=== PATIENT | female | born 1940 | race Caucasian/White ===

== ENCOUNTER 2024-03-06 12:56 | Outpatient (CLI) | payer MEDICARE, OTHER ==
[~2024-03-06 12:56] MED LIST: B-121000 MCG PO; CARDIZEM CD 24240 MG PO; CATAPRES 0.1MG0.1 MG PO; COZAAR100 MG PO; CRESTOR 10MG10 MG PO; EPIPEN1 MG/ML MR; FERRO-TIME325 MG PO; FLONASE NASAL S16 GM NS; HYZAAR 25 MG-101 TAB PO; KLOR-CON20 MEQ PO; MAG-OX 400400 MG/TAB PO; POLICOSANOL10 MG PO; PROTONIX 40MG T40 MG PO; SINGULAIR 110 MG/TAB PO; SYNTHROID0.1 MG/TAB PO; TRIAMC 0.1 454 TOP; VITAMIND3 5000 PO; ZYRTEC 10MG10 MG PO; [UNRECOGNIZED DRUG - CODE] PO; [UNRECOGNIZED DRUG - CODE] PO
[2024-03-06 13:28] VITALS: BP 143/93; PULSE 76; TEMP 97.9
[2024-03-06] MEDS ORDERED: Denosumab 60 MG/ML SYRINGE SQ ONE (13:30)
--- NOTE | 2024-03-06 13:44 | NUR ---
PT TOLERATED PROLIA INJECTION WELL. REMAINED FREE FROM SIGNS OF ADVERSE OR ALLERGIC REACTION. PT ASSISTED TO MAIN LOBBY VIA WHEELCHAIR AND WAS PICKED UP BY [facility]. PT FREE FROM CONCERNS AND COMPLAINTS AT TIME OF DISCHARGE.
== END 2024-03-06 13:46 | disposition home or self-care (01) ==
LOC: EUO 12:56
DX: M81.0 Age-related osteoporosis without current pathological fracture (principal)
CPT/HCPCS: J0897